=== PATIENT | female | born 1945 | race Asian ===

== ENCOUNTER 2017-03-05 23:06 | Inpatient (IN) | payer MEDICAID, MEDICARE, OTHER ==
[~2017-03-05] VITALS: Ht 160 cm; Wt 60.3 kg
[~2017-03-05 23:06] MED LIST: ALBU8.5H2 IH; ALLO100T PO; ASPI81TA2 PO; CYAN500T4 PO; FERR325T28 PO; LENA10CA PO; LEVO750T21 PO
--- NOTE | 2017-03-05 23:20 | NUR ---
TO BED 1 A 71 YO FEMALE PATIENT BIB DAUGHTER, C/O PAINFUL URINATION/ UNABLE TO URINATE 7PM. SEEN BY PCP 2:30P DX UTI, BRONCHITIS, START LEVOQUIN 500MG AT 7PM. PATIENT IS AAOX4, NAD NOTED. AFEBRILE. NONDIAPHORETIC. VSS. GOWNED. COMFORT MEASURES RENDERED. AWAITING FOR ER MD HARDEN.
[2017-03-06] VITALS (8 sets, daily range): BP systolic 95–141; BP diastolic 52–63
--- NOTE | 2017-03-06 00:10 | NUR ---
INSERTED CALHOUN CATHETER ASEPTICALLY PER DR NEWBY, DRAINED YELLOW URINE APPROXIMATELY 300CC, URINE COLLECTED AND SENT TO LAB. PER DR NEWBY, LEAVE THE CALHOUN CATHETER IN.
--- NOTE | 2017-03-06 00:20 | NUR ---
STARTED A SALINE LOCK ON THE RIGHT HAND G20, BLOOD DRAWN AND SENT TO LAB.
[2017-03-06 00:28] LABS: BASOPHILS # (AUTO) 0.1 /CMM (0.0-0.2); BASOPHILS % (AUTO) 1.2 % (0.0-2.0); EOSINOPHILS # (AUTO) 0.1 /CMM (0.0-0.7); EOSINOPHILS % (AUTO) 0.6 % (0.0-6.0); HEMATOCRIT 22 % (33-45); HEMOGLOBIN 7.2 g/dL (11.5-14.8); LYMPHOCYTES # (AUTO) 0.9 /CMM (0.8-4.8); LYMPHOCYTES % (AUTO) 9.7 % (20.0-44.0); MEAN CORPUSCULAR HEMOGLOBIN 28 PG (26.0-33.0); MEAN CORPUSCULAR HGB CONC 33 g/dl (31.0-36.0); MEAN CORPUSCULAR VOLUME 84 fL (82-100); MONOCYTES # (AUTO) 0.4 /CMM (0.1-1.30); MONOCYTES % (AUTO) 3.9 % (2.0-12.0); NEUTROPHILS % (AUTO) 84.6 % (43.0-81.0); PLATELET COUNT (AUTO) 145 /CMM (150-450); RDW COEFFICIENT OF VARIATION 19.4 (11.5-15.0); RED BLOOD CELL COUNT(AUTO) 2.58 MIL/uL (4.0-5.2); WHITE BLOOD COUNT (AUTO) 9.5 K/uL (4.3-11.0)
[2017-03-06 00:30] LABS: APPEARANCE,URINE SL CLOUDY (CLEAR); BILIRUBIN,URINE NEGATIVE (NEGATIVE); BLOOD, URINE TRACE-INTA Ery/uL (NEGATIVE); COLOR,URINE YELLOW (YELLOW); KETONES,URINE NEGATIVE (NEGATIVE); LEUKOCYTE ESTERASE ,URINE 3+ (NEGATIVE); NITRITE, URINE NEGATIVE (NEGATIVE); PROTEIN,URINE NEGATIVE (NEGATIVE); UGLUCOSE NEGATIVE (NEGATIVE); UROBILINOGEN,URINE 0.2 EU/dL (0.2)
[2017-03-06 00:36] LABS: BACTERIA,URINE Many /HPF (None Seen); SQUAMOUS EPITHELIAL CELL,UR Rare /HPF (None Seen); WBC,URINE TOO NUMEROUS TO COUN /HPF (0-3)
[2017-03-06 00:39] LABS: CALCIUM, SERUM 7.8 mg/dL (8.5-10.1); CREATININE 0.9 mg/dL (0.6-1.3); POTASSIUM 4.8 mmol/L (3.5-5.1)
[2017-03-06 00:46] LABS: BILIRUBIN,DIRECT 0.3 mg/dL (0.0-0.2); BILIRUBIN,TOTAL 1.3 mg/dL (0.2-1.0); TOTAL PROTEIN, SERUM 7.4 g/dL (6.4-8.2)
[2017-03-06] MEDS ORDERED: IV NS 0.9% 1,000 ML IV ONE (00:50)
[2017-03-06 01:00] LABS: BAND % (MANUAL) 9 % (0.0-5.0); LYMPHOCYTES % (MANUAL) 11 % (16-48); MONOCYTES % (MANUAL) 6 % (0-11.0); NEUTROPHILS % (MANUAL) 74 (42-76)
[2017-03-06] MEDS ORDERED: CEFTRIAXONE 1 G in IV D5W 50 ML IV ONE (01:00)
[2017-03-06] MEDS ORDERED: CEFTRIAXONE 1GM BAG (ER ONLY) 50 ML IV ONE (01:11)
--- NOTE | 2017-03-06 01:20 | NUR ---
REPORT GIVEN TO RN FOR MIHIR
--- NOTE | 2017-03-06 01:20 | NUR ---
MEDICTAED PT ORDERED
--- NOTE | 2017-03-06 01:22 | NUR ---
PT TRANSFERED TO TELE 320-2 PER ACLS PROTOCOL
[2017-03-06] MEDS ORDERED: ACETAMINOPHEN 325 MG TABLET PO PRN (01:30)
[2017-03-06] MEDS ORDERED: CEFTRIAXONE 1 G in IV D5W 50 ML IV SCH (01:30)
[2017-03-06] MEDS ORDERED: ONDANSETRON HCL/PF 4 MG/2 ML VIAL IVP PRN (01:30)
[2017-03-06] MEDS ORDERED: MAGNESIUM HYDROXIDE 30 ML UDC PO PRN (01:30)
[2017-03-06] MEDS ORDERED: HYDROCODONE/APAP 5/325MG 1 EACH TABLET PO PRN (01:30)
[2017-03-06] MEDS ORDERED: MAG HYDROX/AL HYDROX/SIMETH 30 ML UDC PO PRN (01:30)
[2017-03-06] MEDS ORDERED: Z GUARD REMEDY 2 OZ OINT TP PRN (01:30)
--- NOTE | 2017-03-06 02:00 | NUR ---
admitted pt from er, pt alert, oriented, restless due to discomfort from goley catheter.price draining well, cloudy yellow, vss,afebrile ,sinus rhythm on monitor, spoke with daughter regarding pt information.will continue to monitor.call light at reached.
[2017-03-06] MEDS ORDERED: HYDROCODONE/APAP 5/325MG 1 EACH TABLET ONE (03:00)
--- NOTE | 2017-03-06 07:10 | NUR ---
pt slept well after norco given price draining 1250cc overnight cloudy urine. continue with ivfluids, vss,afebrile ,sinus on monitor.
[2017-03-06 07:52] LABS: CALCIUM, SERUM 7.7 mg/dL (8.5-10.1); CREATININE 0.7 mg/dL (0.6-1.3); POTASSIUM 4.5 mmol/L (3.5-5.1)
--- NOTE | 2017-03-06 08:20 | NUR ---
ms rn received on bed, awake,alert,oriented x4,not in any form of distress, respirations even and unlabored,no sob noted, lungs are clear,abdomen soft,positive bowel sounds, denies pain at this time,price catheter to gravity, w/ yellowish urine output.will monitor patient.
[2017-03-06] MEDS ORDERED: LEVO50TA8 PO (08:36)
[2017-03-06] MEDS ORDERED: LEVO500T90 PO (08:36)
[2017-03-06] MEDS ORDERED: APIX5TAB PO (08:36)
[2017-03-06] MEDS ORDERED: FOLI1TAB16 PO (08:36)
[2017-03-06] MEDS ORDERED: POTA10TA11 PO (08:36)
[2017-03-06] MEDS ORDERED: METO50TA3 PO (08:36)
[2017-03-06] MEDS ORDERED: FURO20TA4 PO (08:36)
--- NOTE | 2017-03-06 09:20 | NUR ---
ms robbie breakfast served,waiting for dr. guo to reconcile home meds.
--- NOTE | 2017-03-06 10:25 | NUR ---
ms rn patient went down for ct abdomen.
--- NOTE | 2017-03-06 11:50 | NUR ---
ms rn was seen by dr. guo w/ alonso to be given.
[2017-03-06] MEDS: APIXABAN 5 MG TABLET PO SCH ×2 (12:56→22:56)
[2017-03-06] MEDS: FOLIC ACID 1 MG TABLET PO SCH ×2 (12:57→22:57)
[2017-03-06] MEDS: METOPROLOL TARTRATE 50 MG TABLET PO SCH ×2 (12:57→22:57)
[2017-03-06] MEDS: ALLOPURINOL 100 MG TABLET PO SCH ×2 (12:57→22:57)
[2017-03-06] MEDS: IV NS 0.9% 1,000 ML IV PRN ×2 (12:58→22:48)
[2017-03-06] MEDS ORDERED: METOPROLOL TARTRATE 50 MG TABLET PO SCH (17:00)
[2017-03-06] MEDS ORDERED: FOLIC ACID 1 MG TABLET PO SCH (17:00)
[2017-03-06] MEDS ORDERED: ALLOPURINOL 100 MG TABLET PO SCH (17:00)
[2017-03-06] MEDS ORDERED: APIXABAN 5 MG TABLET PO SCH (17:00)
--- NOTE | 2017-03-06 18:20 | NUR ---
MS RN ON BED, EATING DINNER,NO DISTRESS NOTED,WILL ENDORSE TO TAX PROCESSOR FOR CONTINUITY OF CARE.
--- NOTE | 2017-03-06 19:45 | NUR ---
RN INITIAL NOTES: RECEIVED REPORT FROM FELIPE RN, PT IN BED, AWAKE, A/O X3 ON RA RESPIRATION EVEN AND UNLABORED, PT C/O DISCOMFORT DUE TO CALHOUN CATHETER, HOWEVER PT ALSO C/O DIFFICULTY URINATING AND UNABLE TO VOID, DISCUSSED AND EXPLAINED TO THE PT THE IMPORTANCE OF VOIDING AND CALHOUN CATHETER, PT HAS IV ACCESS ON RIGHT HAND, PATENT AND FLUSHING WELL, INFUSING WITH NS AT 100ML/HR, ON SINUS RHYTHM HR 85, SAFETY PRECAUTIONS FOR FALL INITIATED CALL LIGHT IN REACH, WILL CONTINEU TO MONITOR
[2017-03-06 20:07] LABS: URINE SODIUM, RANDOM 16 mmol/l (40-220)
[2017-03-06 20:41] LABS: OSMOLALITY,SERUM 269 mOS/kg (278-305); OSMOLALITY,URINE 259 mOS/kg (340-1090)
[2017-03-06 20:52] LABS: IRON, SERUM 25 ug/dl (50-175); TOTAL IRON BINDING CAPACITY 198 ug/dl (250-450)
[2017-03-06] MEDS: CEFTRIAXONE 1 G in IV D5W 50 ML IV SCH (22:48)
--- NOTE | 2017-03-06 22:57 | NUR ---
NON ADMINISTRATION OF LOPRESSOR: LOPRESSOR 50MG TAB NOT ADMINISTERED DUE TO LOW BP, VS 95/55 HR 73 RR 18, SPO2 93%, PT RECEIVING NS AT 100ML/HR
[2017-03-07] VITALS (7 sets, daily range): BP systolic 109–115; BP diastolic 56–81
--- NOTE | 2017-03-07 05:00 | NUR ---
RN NOTES: FELT CHECKER PROVIDED BED BATH TO THE PT AT THIS TIME, ASSISTED PT TO SIT IN A CHAIR, WHILE CHANGING BED LINENS
--- NOTE | 2017-03-07 06:44 | NUR ---
RN CLOSING NOTES: PT IN BED, AWAKE, REMAINS A/O X3 ON RA RESPIRATION EVEN AND UNLABORED, PT C/O DISCOMFORT IN THE CATHETER AREA, BUT REFUSING FOR PAIN MEDICATION, RIGHT HAND IV ACCESS REMAINS PATENT AND FLUSHING WELL, INFUSING WITH NS AT 100ML/HR, REMAINS ON SINUS RHYTHM HR 75. VS REMAINS STABLE, NEEDS ATTENDED. SAFETY PRECAUTIONS FOR FALL REMAINS ENGAGED, CALL LIGHT IN REACH, WILL ENDORSE TO DAY RN FOR MIHIR.
[2017-03-07 07:10] LABS: BASOPHILS % (AUTO) 0.1 % (0.0-2.0); EOSINOPHILS % (AUTO) 0.2 % (0.0-6.0); HEMATOCRIT 22 % (33-45); HEMOGLOBIN 7.2 g/dL (11.5-14.8); LYMPHOCYTES # (AUTO) 0.8 /CMM (0.8-4.8); LYMPHOCYTES % (AUTO) 11.8 % (20.0-44.0); MEAN CORPUSCULAR HEMOGLOBIN 28 PG (26.0-33.0); MEAN CORPUSCULAR HGB CONC 33 g/dl (31.0-36.0); MEAN CORPUSCULAR VOLUME 85 fL (82-100); MONOCYTES # (AUTO) 0.4 /CMM (0.1-1.30); MONOCYTES % (AUTO) 5.3 % (2.0-12.0); NEUTROPHILS # (AUTO) 5.6 /CMM (1.8-8.9); NEUTROPHILS % (AUTO) 82.6 % (43.0-81.0); PLATELET COUNT (AUTO) 162 /CMM (150-450); RDW COEFFICIENT OF VARIATION 19.5 (11.5-15.0); RED BLOOD CELL COUNT(AUTO) 2.52 MIL/uL (4.0-5.2); WHITE BLOOD COUNT (AUTO) 6.8 K/uL (4.3-11.0)
[2017-03-07 07:19] LABS: ALBUMIN 2.5 g/dL (3.4-5.0); BILIRUBIN,TOTAL 0.5 mg/dL (0.2-1.0); CALCIUM, SERUM 8.1 mg/dL (8.5-10.1); CREATININE 0.6 mg/dL (0.6-1.3); PHOSPHORUS 3.5 mg/dL (2.5-4.9); POTASSIUM 4.2 mmol/L (3.5-5.1); TOTAL PROTEIN, SERUM 6.6 g/dL (6.4-8.2)
--- NOTE | 2017-03-07 07:20 | NUR ---
RN NOTES PT IN BED. ALERT AND ORIENTED X3. VS STABLE. RESPIRATIONS EVEN AND UNLABORED. PT C/O DISCOMFORT IN THE CATHETER AREA, BUT REFUSING FOR PAIN MEDICATION. IV ACCESS INTACT AND PATENT. INFUSING WITH NS AT 100ML/HR. BED IN LOW POSITION. SIDE RAILSX2. CALL LIGHT IN REACH. CONTINUE TO MONITOR.
[2017-03-07] MEDS ORDERED: LEVOTHYROXINE SODIUM 50 MCG TABLET PO SCH (07:30)
[2017-03-07 07:33] LABS: THYROID STIMULATING HORMONE 1.424 uIU/mL (0.358-3.74)
[2017-03-07] MEDS: FOLIC ACID 1 MG TABLET PO SCH ×2 (09:14→17:21)
[2017-03-07] MEDS: ALLOPURINOL 100 MG TABLET PO SCH ×2 (09:14→17:21)
[2017-03-07] MEDS: METOPROLOL TARTRATE 50 MG TABLET PO SCH ×2 (09:15→17:22)
[2017-03-07] MEDS: APIXABAN 5 MG TABLET PO SCH ×2 (09:18→17:21)
[2017-03-07] MEDS: IV NS 0.9% 1,000 ML IV PRN ×2 (11:09→22:46)
[2017-03-07] MEDS: SOD FERRIC GLUC 125 MG in IV NS 0.9% 100 ML IV SCH (15:33)
--- NOTE | 2017-03-07 16:30 | NUR ---
RN NOTES CALHOUN CATHETER REMOVED ORDERED TOLERATED WELL ORDERED, TO BE MONITORED FOR URINARY RETENTION AT THIS TIME, WILL CONTINUE TO MONITOR
--- NOTE | 2017-03-07 19:20 | NUR ---
RN CLOSING NOTES PATIENT IN BED. ALERT AND ORIENTED X3. NO C/O PAIN AT THIS TIME. NO RESPIRATORY DISTRESS NOTED. VS STABLE. NO SOB. IV ACCESS PATENT AND INTACT. CONTINUED TO MONITOR FOR URINARY RETENTION. ALL MEDICATIONS GIVEN PER MD ORDER. BED IN LOW POSITION. SIDE RAILS X2. CALL LIGHT WITHIN EASY REACH. WILL ENDORSE TO REGULATORY AFFAIRS SPECAERIAL HURRICANE HUNTER FOR CONTINUITY OF CARE.
--- NOTE | 2017-03-07 19:30 | NUR ---
TIRE RECAPPING MACHINE OPERATOR OPENING NOTES: PT IN BED, AOX3, ON ROOM AIR, BREATHING EVEN AND UNLABORED. APPEARS CALM AND IN NO DISTRESS. BREATH SOUNDS CLEAR TO AUSCULTATION. ON TELE MONITORING, SR AT RATE OF 72. PIV OVER R HAND G 20 INTACT AND INFUSING WELL WITH NS RUNNING AT 100 ML/HR. PROVIDED FOR COMFORT AND SAFETY. BED IN LOWEST AND LOCKED POSITION, SIDERAILS UPX23. WILL CONT TO MONITOR.
--- NOTE | 2017-03-07 21:40 | NUR ---
RN NOTES: PT SIGNED CONSENT FOR CT UROGRAM TOMORROW.
--- NOTE | 2017-03-07 22:00 | NUR ---
RN NOTES: S/B DR PRINCE. TELE D'DOMINIC.
[2017-03-07] MEDS: CEFTRIAXONE 1 G in IV D5W 50 ML IV SCH (22:46)
[2017-03-08] VITALS (10 sets, daily range): BP systolic 95–134; BP diastolic 60–80
--- NOTE | 2017-03-08 06:30 | NUR ---
MS RN CLOSING NOTES: PATIENT IN BED, AOX3, ON ROOM AIR, BREATHING EVEN AND UNLABORED. APPEARS CALM AND IN NO DISTRESS. DENIES PAIN. WAS ABLE TO VOID WELL THROUGH THE NIGHT, DENIES ANY DYSURIA. MAINTAINED ON NPO POST MN FOR CT UROGRAM FOR THIS AM. PIV OVER R HAND G20 INTACT AND INFUSING WELL WITH NS RUNNING AT 100 ML/HR. PROVIDED FOR COMFORT AND SAFETY. BED IN LOWEST AND LOCKED POSITION. SIDERAILS UPX2. WILL ENDORSE TO AM RN FOR MIHIR.
--- NOTE | 2017-03-08 07:30 | NUR ---
RN OPENING NOTES RECEIVED PT. IN BED A&OX3. BREATHING UNLABORED AND EVENLY ON ROOM AIR. NO S/S OF ACUTE DISTRESS. IV FLUIDS RUNNING AT 100 ML/HR. BED IS IN LOWEST LOCKED POSITION, 2 SIDE RAILS UP, AND INSTRUCTED PT. TO USE CALL LIGHT WITHIN REACH FOR ASSISTANCE. WILL CONTINUE TO ASSESS AND MONITOR.
[2017-03-08 07:51] LABS: EOSINOPHILS % (AUTO) 0.2 % (0.0-6.0); LYMPHOCYTES # (AUTO) 0.7 /CMM (0.8-4.8); LYMPHOCYTES % (AUTO) 10.3 % (20.0-44.0); MEAN CORPUSCULAR HEMOGLOBIN 28 PG (26.0-33.0); MEAN CORPUSCULAR HGB CONC 33 g/dl (31.0-36.0); MEAN CORPUSCULAR VOLUME 85 fL (82-100); MONOCYTES # (AUTO) 0.2 /CMM (0.1-1.30); MONOCYTES % (AUTO) 2.5 % (2.0-12.0); NEUTROPHILS # (AUTO) 5.5 /CMM (1.8-8.9); PLATELET COUNT (AUTO) 182 /CMM (150-450); RDW COEFFICIENT OF VARIATION 19.3 (11.5-15.0); RED BLOOD CELL COUNT(AUTO) 2.41 MIL/uL (4.0-5.2); WHITE BLOOD COUNT (AUTO) 6.4 K/uL (4.3-11.0)
[2017-03-08 07:57] LABS: HEMOGLOBIN 6.8 g/dL (11.5-14.8)
[2017-03-08 07:58] LABS: HEMATOCRIT 20 % (33-45)
[2017-03-08 08:01] LABS: RETICULOCYTE COUNT 3.4 % (0.6-2.5)
[2017-03-08 08:02] LABS: CREATININE 0.6 mg/dL (0.6-1.3); MAGNESIUM 1.6 mg/dL (1.8-2.4); PHOSPHORUS 3.6 mg/dL (2.5-4.9); POTASSIUM 4.1 mmol/L (3.5-5.1)
--- NOTE | 2017-03-08 08:30 | NUR ---
RN NOTES LAB CALLED WITH CRITICAL LAB RESULTS, PT. HGB 6.8 AND HCT 20. MD IS AWARE, AND BLOOD TRANSFUSION CONSENT SIGNED AND 1 UNIT OF PRBC'S WAS ORDERED.
--- NOTE | 2017-03-08 08:47 | NUR ---
RN NOTES PT. LEFT ROOM FOR CT UROGRAM.
[2017-03-08] MEDS ORDERED: IOHEXOL-300 100 ML VIAL IV ONE (08:54)
[2017-03-08] MEDS ORDERED: CT SWABBABLE VALVE TRANS SET 1 EA INFUS.SET MC ONE (08:54)
[2017-03-08] MEDS ORDERED: IV NS 0.9% 250 ML IV ONE (08:56)
[2017-03-08] MEDS: METOPROLOL TARTRATE 50 MG TABLET PO SCH ×2 (09:51→17:45)
[2017-03-08] MEDS: ALLOPURINOL 100 MG TABLET PO SCH ×2 (09:51→17:45)
[2017-03-08] MEDS: FOLIC ACID 1 MG TABLET PO SCH ×2 (09:52→17:45)
[2017-03-08] MEDS: LEVOTHYROXINE SODIUM 25 MCG TABLET PO SCH (09:52)
[2017-03-08 11:18] LABS: BAND % (MANUAL) 7 % (0.0-5.0); EOSINOPHILS % (MANUAL) 1 % (0-4); LYMPHOCYTES % (MANUAL) 7 % (16-48); MONOCYTES % (MANUAL) 5 % (0-11.0); NEUTROPHILS % (MANUAL) 80 (42-76)
[2017-03-08] MEDS ORDERED: Magnesium 1GM/D5W 100ML PREMIX 100 ML IV SCH (11:30)
[2017-03-08] MEDS: IV NS 0.9% 1,000 ML IV PRN (14:51)
[2017-03-08] MEDS: SOD FERRIC GLUC 125 MG in IV NS 0.9% 100 ML IV SCH (14:51)
[2017-03-08] MEDS: Magnesium 1GM/D5W 100ML PREMIX 100 ML IV SCH ×2 (16:26→17:40)
[2017-03-08 19:06] LABS: BASOPHILS # (AUTO) 0.1 /CMM (0.0-0.2); BASOPHILS % (AUTO) 0.9 % (0.0-2.0); EOSINOPHILS # (AUTO) 0.1 /CMM (0.0-0.7); EOSINOPHILS % (AUTO) 0.6 % (0.0-6.0); HEMATOCRIT 29 % (33-45); HEMOGLOBIN 9.6 g/dL (11.5-14.8); LYMPHOCYTES # (AUTO) 1.4 /CMM (0.8-4.8); LYMPHOCYTES % (AUTO) 11.6 % (20.0-44.0); MEAN CORPUSCULAR HEMOGLOBIN 28 PG (26.0-33.0); MEAN CORPUSCULAR HGB CONC 33 g/dl (31.0-36.0); MEAN CORPUSCULAR VOLUME 85 fL (82-100); MONOCYTES # (AUTO) 0.2 /CMM (0.1-1.30); MONOCYTES % (AUTO) 1.9 % (2.0-12.0); NEUTROPHILS # (AUTO) 10.3 /CMM (1.8-8.9); PLATELET COUNT (AUTO) 261 /CMM (150-450); RDW COEFFICIENT OF VARIATION 18.1 (11.5-15.0); RED BLOOD CELL COUNT(AUTO) 3.47 MIL/uL (4.0-5.2); WHITE BLOOD COUNT (AUTO) 12.1 K/uL (4.3-11.0)
--- NOTE | 2017-03-08 19:30 | NUR ---
MS RN OPENING NOTES: PATIENT IN BED, AOX4 ON ROOM AIR BREATHING EVEN AND UNLABORED. APPEARS CAM ADN IN NO DISTRESS DENIES PAIN. PIV OVER L WRIST G22 INTACT AND PATENT INFUSING WELL WITH NS RUNNING AT 100 ML/HR. PROVIDED FOR COMFORT AND SAFETY. BED IN LOWEST AND LOCKED POSITION, SIDERAILS UPX3. WILL CONT TO MONITOR.
--- NOTE | 2017-03-08 19:30 | NUR ---
RN CLOSING NOTES PT. IN BED A&OX3. BREATHING UNLABORED AND EVENLY ON ROOM AIR. NO S/S OF ACUTE DISTRESS. IV FLUIDS RUNNING AT 100 ML/HR. BED IS IN LOWEST LOCKED POSITION, 2 SIDE RAILS UP, AND INSTRUCTED PT. TO USE CALL LIGHT WITHIN REACH FOR ASSISTANCE. WILL ENDORSE REPORT TO NURSE.
--- NOTE | 2017-03-08 20:53 | NUR ---
RN NOTES: BEDSIDE US BEING DONE NOW.
[2017-03-08] MEDS: CEFTRIAXONE 1 G in IV D5W 50 ML IV SCH (22:12)
[2017-03-09 04:00] VITALS: BP 107/63
--- NOTE | 2017-03-09 06:48 | NUR ---
MS RN CLOSING NOTES: PATIENT IN BED, AOX3 ON ROOM AIR BREATHING EVEN AND UNLABORED. APPEARS CALM AND IN NO DISTRESS. PIV OVER LEFT WRIST G22 INTACT AND INFUSING WELL WITH NS RUNNING AT 100 ML/HR. DUE MEDS GIVEN. PROVIDED FOR COMFORT AND SAFETY. BED IN LOWEST AND LOCKED POSITION SIDERAILS UPX3. WILL ENDORSE TO AM RN FOR MIHIR.
--- NOTE | 2017-03-09 07:43 | NUR ---
MS/RN OPENING NOTE PATIENT RECEIVED IN BED IN STABLE CONDITION. A/O X 3. NO SIGNS OF ACUTE DISTRESS. NO COMPLAIN OF PAIN OR DISCOMFORT. ALL NEEDS ATTENDED TO. CALL LIGHT WITHIN REACH. WILL CONTINUE TO MONITOR TO ENSURE SAFETY.
[2017-03-09 08:00] VITALS: BP 118/67
[2017-03-09 08:13] LABS: CALCIUM, SERUM 8.1 mg/dL (8.5-10.1); CREATININE 0.7 mg/dL (0.6-1.3); POTASSIUM 4.1 mmol/L (3.5-5.1)
[2017-03-09] MEDS: FOLIC ACID 1 MG TABLET PO SCH ×2 (08:32→17:26)
[2017-03-09] MEDS: METOPROLOL TARTRATE 50 MG TABLET PO SCH ×2 (08:32→17:26)
[2017-03-09] MEDS: ALLOPURINOL 100 MG TABLET PO SCH ×2 (08:32→17:26)
[2017-03-09] MEDS: IV NS 0.9% 1,000 ML IV PRN (09:28)
[2017-03-09] MEDS: ALBUTEROL FS 2.5 MG/3 ML VIAL.NEB NEB PRN (10:13)
[2017-03-09 10:23] LABS: IMMUNOGLOBULIN A, SERUM 222 mg/dL (87-352); IMMUNOGLOBULIN G, SERUM 847 mg/dL (700-1600); IMMUNOGLOBULIN M, SERUM 144 mg/dL (26-217)
[2017-03-09] MEDS: SOD FERRIC GLUC 125 MG in IV NS 0.9% 100 ML IV SCH (15:29)
[2017-03-09 16:00] VITALS: BP 122/69
--- NOTE | 2017-03-09 16:37 | NUR ---
MS/RN CALHOUN CATHETER INSERTION SPOKE WITH DR MARTINEZ AND MADE AWARE PATIENT NOTED WITH DIFFICULTY VOIDING AND PER PATIENT, SHE HAS A URGE TO VOID BUT NOTHING COMES OUT. DR MARTINEZ ORDERED TO INSERT CALHOUN CATHETER.
[2017-03-09 17:51] LABS: BASOPHILS % (AUTO) 0.3 % (0.0-2.0); EOSINOPHILS # (AUTO) 0.1 /CMM (0.0-0.7); EOSINOPHILS % (AUTO) 1.1 % (0.0-6.0); HEMATOCRIT 24 % (33-45); HEMOGLOBIN 7.8 g/dL (11.5-14.8); LYMPHOCYTES # (AUTO) 1.1 /CMM (0.8-4.8); LYMPHOCYTES % (AUTO) 12.8 % (20.0-44.0); MEAN CORPUSCULAR HEMOGLOBIN 27 PG (26.0-33.0); MEAN CORPUSCULAR HGB CONC 32 g/dl (31.0-36.0); MEAN CORPUSCULAR VOLUME 85 fL (82-100); MONOCYTES # (AUTO) 0.4 /CMM (0.1-1.30); MONOCYTES % (AUTO) 4.4 % (2.0-12.0); NEUTROPHILS # (AUTO) 6.8 /CMM (1.8-8.9); NEUTROPHILS % (AUTO) 81.4 % (43.0-81.0); PLATELET COUNT (AUTO) 193 /CMM (150-450); RDW COEFFICIENT OF VARIATION 18.7 (11.5-15.0); RED BLOOD CELL COUNT(AUTO) 2.85 MIL/uL (4.0-5.2); WHITE BLOOD COUNT (AUTO) 8.4 K/uL (4.3-11.0)
[2017-03-09 18:12] LABS: CALCIUM, SERUM 8.1 mg/dL (8.5-10.1); CREATININE 0.7 mg/dL (0.6-1.3); POTASSIUM 4.9 mmol/L (3.5-5.1)
--- NOTE | 2017-03-09 18:16 | NUR ---
MS/RN CLOSING NOTE PATIENT IN BED IN STABLE CONDITION. A/O X 3. NO SIGNS OF ACUTE DISTRESS. NO COMPLAIN OF PAIN OF DISCOMFORT. ALL NEEDS ATTENDED TO. CALL LIGHT WITHIN REACH. WILL ENDORSE TO NEXT SHIFT FOR CONTINUITY OF CARE.
--- NOTE | 2017-03-09 18:34 | NUR ---
MS/RN PAGED DR MARTINEZ PATIENT NOTED WITH HGB OF 7.8L. PAGED DR MARTINEZ AWAITING FOR CALL BACK.
--- NOTE | 2017-03-09 18:57 | NUR ---
MS/RN ORDERS FROM DR MARTINEZ SPOKE WITH DR MARTINEZ MADE AWARE REGARDING PATIENTS HGB OF 7.8L WITH ORDERS TO TRANSFUSE 1 UNIT PRBC. CONSENT FOR BLOOD TRANSFUSION OBTAINED FROM PATIENT.
[2017-03-09 20:00] VITALS: BP 126/77
--- NOTE | 2017-03-09 20:00 | NUR ---
ms/rn opening notes PATIENT IN BED, AWAKE, ALERT X3. ABLE TO VERBALIZE NEEDS. PROVIDED INFO REGARDING MD ORDER FOR I PACK RBC TO TRANSFUSE DUE TO LOW HGB LEVEL OG LESS THAN 8 AND PATIENT PROVIDED INFO, INFECTION CONTROL MEASURES AND KEEP VITAL SIGNS MONITORING FOR ANY CHANGES, SKIN WARM TO TOUCH. RESPIRATION EVEN AND UN LABORED. CALL LIGHTS WITHIN REACH.
[2017-03-09 21:47] LABS: BAND % (MANUAL) 2 % (0.0-5.0); LYMPHOCYTES % (MANUAL) 14 % (16-48); MONOCYTES % (MANUAL) 9 % (0-11.0); MYELOCYTES % 2 % (0-0); NEUTROPHILS % (MANUAL) 69 (42-76); REACTIVE LYMPHOCYTES 4 % (0-0)
[2017-03-09] MEDS: CEFTRIAXONE 1 G in IV D5W 50 ML IV SCH (22:15)
--- NOTE | 2017-03-09 22:36 | NUR ---
MS/RN NOTES LAB WAS CALLED FOR 1 PACK RBC AND NOT YET READY WILL CALL AGAIN.
--- NOTE | 2017-03-09 22:37 | NUR ---
MS/RN NOTES CALLED LAB AND SPOKE TP MAY REGARDING 1 INIT PACK RBC AVAILABLE FOR RECRUIT INSTRUCTOR WILL COLLECT BLOOD AFTER ANTIBIOTIC IV HAS BEEN INFUSED.
--- NOTE | 2017-03-09 22:48 | NUR ---
MS/RN NOTES PATIENT CHECKED VITAL SIGNS BEFORE BLOOD TRANSFUSION. WITH TEMPERATURE OF 99.2 DEG F, PULSE 74, RESPIRATION OF 22, B/P 96/68, O2 SAT IN ROOM AIR AT 97% NO PAIN REPORTED OR OBSERVED. WILL GIVE NEEDED TYLENOL 650MG PO BEFORE TRANSFUSION. IV ATB BEING INFUSED AT THIS TIME.
[2017-03-09 23:42] VITALS: BP 127/68
--- NOTE | 2017-03-09 23:45 | NUR ---
MS/RN NOTES I PACK RBC TO BE ADMINISTERED W/ VERIFICATION BY LAB AND ANOTHER RN ELENOR FOR PROTOCOL. PATIENT ALERT X3 NO S/S OF DISCOMFORT.
[2017-03-10] VITALS (9 sets, daily range): BP systolic 104–133; BP diastolic 58–73
--- NOTE | 2017-03-10 02:53 | NUR ---
ms/rn notes 1 unit pack rbc transfused w/ no s/s of adverse reaction. Patient alert, oriented x3. Resting comfortably , respirations even and unlabored. Skin warm to touch. Will continue to monitor.
--- NOTE | 2017-03-10 06:51 | NUR ---
327-1 MS/RN CLOSING NOTES PATIENT ALERT, ORIENTED X3, ABLE TO COOPERATE AND VERBALIZE NEEDS AT ALL TIMES. INFORMED REGARDING LOW HEMOGLOBIN LEVEL W/MD ORDER TO GIVE I UNIT OF PACKED RBC, PATIENT CONSENT FORM SIGNED AND TRANSFUSED BLOOD W/ NO S/S OF ADVERSE REACTION. WILL ENDORSE TO AM RN FOR MIHIR.
--- NOTE | 2017-03-10 08:00 | NUR ---
RN NOTES RECEIVED PT. PT IS STABLE AND SLEEPING IN BED. NO S/S OF DISTRESS OR SOB. PT HAS NO C/O PAIN, HOWEVER C/O MILD ITCHING IN UE. WILL F/U WITH MD. PT IS ON RA, O2 SAT ABOVE 95%. FC INTACT. IV ACCESS LOCATED ON RIGHT FA, 22G RUNNING NS AT 100ML/HR. SAFETY MEASURES IN PLACE, CALL LIGHT WITHIN REACH. WILL CONTINUE TO MONITOR.
[2017-03-10 08:11] LABS: BASOPHILS % (AUTO) 0.6 % (0.0-2.0); EOSINOPHILS # (AUTO) 0.1 /CMM (0.0-0.7); HEMATOCRIT 28 % (33-45); HEMOGLOBIN 9.1 g/dL (11.5-14.8); LYMPHOCYTES # (AUTO) 0.8 /CMM (0.8-4.8); LYMPHOCYTES % (AUTO) 11.1 % (20.0-44.0); MEAN CORPUSCULAR HEMOGLOBIN 28 PG (26.0-33.0); MEAN CORPUSCULAR HGB CONC 33 g/dl (31.0-36.0); MEAN CORPUSCULAR VOLUME 85 fL (82-100); MONOCYTES # (AUTO) 0.3 /CMM (0.1-1.30); MONOCYTES % (AUTO) 4.1 % (2.0-12.0); NEUTROPHILS # (AUTO) 6.1 /CMM (1.8-8.9); NEUTROPHILS % (AUTO) 83.2 % (43.0-81.0); PLATELET COUNT (AUTO) 177 /CMM (150-450); RDW COEFFICIENT OF VARIATION 17.5 (11.5-15.0); RED BLOOD CELL COUNT(AUTO) 3.26 MIL/uL (4.0-5.2); WHITE BLOOD COUNT (AUTO) 7.3 K/uL (4.3-11.0)
[2017-03-10] MEDS: FOLIC ACID 1 MG TABLET PO SCH ×2 (08:14→17:26)
[2017-03-10] MEDS: LEVOTHYROXINE SODIUM 25 MCG TABLET PO SCH (08:14)
[2017-03-10] MEDS: ALLOPURINOL 100 MG TABLET PO SCH ×2 (08:14→17:26)
[2017-03-10] MEDS: IV NS 0.9% 1,000 ML IV PRN (08:20)
[2017-03-10] MEDS: METOPROLOL TARTRATE 50 MG TABLET PO SCH ×2 (08:24→17:26)
[2017-03-10 08:31] LABS: CALCIUM, SERUM 7.9 mg/dL (8.5-10.1); CREATININE 0.7 mg/dL (0.6-1.3); MAGNESIUM 1.9 mg/dL (1.8-2.4); PHOSPHORUS 4.6 mg/dL (2.5-4.9); POTASSIUM 4.5 mmol/L (3.5-5.1)
[2017-03-10 08:33] LABS: INR 0.98 (0.87-1.13); PROTHROMBIN TIME 10.2 SECS (9.5-12.7)
--- NOTE | 2017-03-10 10:53 | NUR ---
RN NOTES MORNING LOPRESSOR HELD DUE TO LOW BP OF 106/58.
[2017-03-10] MEDS: diphenhydrAMINE HCL 25 MG CAPSULE PO PRN ×2 (12:04→22:36)
[2017-03-10] MEDS: SOD FERRIC GLUC 125 MG in IV NS 0.9% 100 ML IV SCH (15:17)
--- NOTE | 2017-03-10 18:05 | NUR ---
RN NOTES CALHOUN CATH D/C PER DR. MARTINEZ ORDER.
--- NOTE | 2017-03-10 18:47 | NUR ---
RN CLOSING NOTES PT IS IN BED RESTING. A/OX3. NO S/S OF DISTRESS OR SOB. NO C/O PAIN AT THIS TIME. FC D/C PER DR. MARTINEZ ORDER. ALL PT NEEDS ANTICIPATED AND MET. SAFETY MEASURES IN PLACE, CALL LIGHT WITHIN REACH. WILL ENDORSE TO GRAB HOOKER FOR MIHIR.
--- NOTE | 2017-03-10 20:00 | NUR ---
MS/RN OPENING NOTES PATIENT AWAKE, ALERT X3, ABLE TO VERBALIZE NEEDS, CALM AND COOPERATIVE TO CARE. NO PAIN VERBALIZED AND OBSERVED. USES BEDSIDE COMMODE WITH SUPERVISION. IV FLUIDS RUNNING AT 100 CC/HR. CALL LIGHTS WITHIN REACH WILL CONTINUE TO MONITOR AND ATTEND TO NEEDS.
[2017-03-10] MEDS: ALBUTEROL FS 2.5 MG/3 ML VIAL.NEB NEB PRN (21:14)
[2017-03-10] MEDS: CEFTRIAXONE 1 G in IV D5W 50 ML IV SCH (22:28)
[2017-03-11] MEDS: IV NS 0.9% 1,000 ML IV PRN (00:01)
--- NOTE | 2017-03-11 06:33 | NUR ---
HORTENCIA NOTES, PATIENT REQUIRING ADL EXTENSICE ASSISTANCE. SKIN WARM TO TOUCH, ABLE TO PROVIDE CARE/ WILL CONTINUE TO PROVIDE CARE AND ENDORSE TO AM HORTENCIA. Addendum: 03/11/17 at 0635 by BALJIT VALDEZ RN PATIENT REQUIRING ASSISTANCE BUT CAN SAFELY DO ADL INDEPENDENTLY W/ ASSISTANCE ONLY
[2017-03-11 07:07] LABS: *SPE ALBUMIN 2.9 g/dL (2.9-4.4); *SPE ALPHA-1-GLOBULIN 0.4 g/dL (0.0-0.4); *SPE ALPHA-2-GLOBULIN 0.7 g/dL (0.4-1.0); *SPE BETA GLOBULIN 0.7 g/dL (0.7-1.3); *SPE GLOBULIN, TOTAL 2.9 g/dL (2.2-3.9); *SPE M-SPIKE Not Observed g/dL (Not Observed); *SPE PROTEIN TOTAL 5.8 g/dL (6.0-8.5); *SPEGAMMA GLOBULIN 1.1 g/dL (0.4-1.8)
--- NOTE | 2017-03-11 07:30 | NUR ---
RN MS NOTES PT IN BED, ASLEEP, EASILY AROUSABLE, ALERT AND ORIENTED, NO COMPLAINT OF PAIN, BREATHING PATTERN NORMAL AND NOT LABORED, CALL LIGHT WITHIN REACH, KEPT WARM AND COMFORTABLE IN BED.
[2017-03-11 07:49] LABS: BASOPHILS # (AUTO) 0.1 /CMM (0.0-0.2); BASOPHILS % (AUTO) 0.8 % (0.0-2.0); EOSINOPHILS # (AUTO) 0.1 /CMM (0.0-0.7); EOSINOPHILS % (AUTO) 1.2 % (0.0-6.0); HEMATOCRIT 28 % (33-45); HEMOGLOBIN 9.1 g/dL (11.5-14.8); LYMPHOCYTES # (AUTO) 1.1 /CMM (0.8-4.8); LYMPHOCYTES % (AUTO) 13.1 % (20.0-44.0); MEAN CORPUSCULAR HEMOGLOBIN 28 PG (26.0-33.0); MEAN CORPUSCULAR HGB CONC 33 g/dl (31.0-36.0); MEAN CORPUSCULAR VOLUME 85 fL (82-100); MONOCYTES % (AUTO) 0.4 % (2.0-12.0); NEUTROPHILS % (AUTO) 84.5 % (43.0-81.0); PLATELET COUNT (AUTO) 206 /CMM (150-450); RDW COEFFICIENT OF VARIATION 18.3 (11.5-15.0); RED BLOOD CELL COUNT(AUTO) 3.26 MIL/uL (4.0-5.2); WHITE BLOOD COUNT (AUTO) 8.3 K/uL (4.3-11.0)
[2017-03-11 08:00] VITALS: BP 114/69
[2017-03-11 08:00] LABS: CALCIUM, SERUM 8.1 mg/dL (8.5-10.1); CREATININE 0.7 mg/dL (0.6-1.3); MAGNESIUM 1.8 mg/dL (1.8-2.4); PHOSPHORUS 4.3 mg/dL (2.5-4.9); POTASSIUM 4.3 mmol/L (3.5-5.1)
[2017-03-11 09:00] VITALS: BP 114/69
[2017-03-11] MEDS: METOPROLOL TARTRATE 50 MG TABLET PO SCH (09:00)
[2017-03-11] MEDS: ALLOPURINOL 100 MG TABLET PO SCH (09:06)
[2017-03-11] MEDS: FOLIC ACID 1 MG TABLET PO SCH (09:06)
[2017-03-11] MEDS: LEVOTHYROXINE SODIUM 25 MCG TABLET PO SCH (09:06)
[2017-03-11 11:20] LABS: BAND % (MANUAL) 3 % (0.0-5.0); LYMPHOCYTES % (MANUAL) 5 % (16-48); MONOCYTES % (MANUAL) 13 % (0-11.0); NEUTROPHILS % (MANUAL) 79 (42-76)
--- NOTE | 2017-03-11 12:30 | NUR ---
RN MS NOTES PT AWAKE, SITTING IN BED, EATING LUNCH, TOLERATING CURRENT DIET WELL, ASSISTED WITH ADL'S, CALL LIGHT WITHIN REACH.
[2017-03-11] MEDS: diphenhydrAMINE HCL 25 MG CAPSULE PO PRN (12:44)
[2017-03-11] MEDS: SOD FERRIC GLUC 125 MG in IV NS 0.9% 100 ML IV SCH (14:00)
--- NOTE | 2017-03-11 14:00 | NUR ---
RN MS NOTES NOTED PT'S IV SITE AT RIGHT FOREARM INFILTRATED, PT WITH SCHEDULED IRON IV, PT REFUSED IV TO BE REINSERTED, REFUSED IV IRON, AWARE.
[2017-03-11] MEDS ORDERED: FLU VACC QS 2017-18(36MOS+)/PF 0.5 ML DISP.SYRIN IM ONE (16:00)
--- NOTE | 2017-03-11 16:20 | NUR ---
RN MS NOTES PT IN BED, RESTING, NO COMPLAINT OF PAIN, NOT IN DISTRESS, SEEN BY DR. MARTINEZ, DISCHARGE ORDER GIVEN, DISCHARGE AND MEDICATION INSTRUCTIONS PROVIDED TO PT AND DAUGHTER SHANNON, VERBALIZED UNDERSTANDING, FLU VACCINE GIVEN PER PROTOCOL, PER DAUGHTER, SHE WILL OBTAIN HER PNEUMONIA VACCINE AT HER PCP'S OFFICE, BELONGINGS ACCOUNTED FOR, ASSISTED PT TO WHEELCHAIR, ASSISTED BY [employer] T[employer]AS[employer] CONSULTANT TO HOSPITAL LOBBY, LEFT IN STABLE CONDITION WITH FAMILY.
== END 2017-03-11 16:15 | disposition home or self-care (01) | DRG 644 ==
LOC: ER 23:13 → TELE 03-06 01:27 → MED 03-08 00:03
PROVIDERS: ADMIT Nurse Practitioner Acute Care; ATTEND Nurse Practitioner Acute Care
PROC: 30233N1 Transfusion of Nonautologous Red Blood Cells into Peripheral Vein, Percutaneous Approach (ICD-10-PCS; principal; 2017-03-08)
DX: E22.2 Syndrome of inappropriate secretion of antidiuretic hormone (principal); N12 Tubulo-interstitial nephritis, not specified as acute or chronic; D75.81 Myelofibrosis; D69.59 Other secondary thrombocytopenia; K92.2 Gastrointestinal hemorrhage, unspecified; N13.6 Pyonephrosis; E86.0 Dehydration; D63.8 Anemia in other chronic diseases classified elsewhere; E03.9 Hypothyroidism, unspecified; E88.09 Other disorders of plasma-protein metabolism, not elsewhere classified; K21.9 Gastro-esophageal reflux disease without esophagitis; D63.0 Anemia in neoplastic disease; K59.09 Other constipation; R16.2 Hepatomegaly with splenomegaly, not elsewhere classified; D50.9 Iron deficiency anemia, unspecified; N28.1 Cyst of kidney, acquired; Z83.3 Family history of diabetes mellitus; R19.5 Other fecal abnormalities; N30.90 Cystitis, unspecified without hematuria
CPT/HCPCS: 36415; 71010-TC; 74022-TC; 74178; 76770-TC; 80048-TC; 80053-TC; 80061-TC; 80076-TC; 81000-TC; 82272-TC; 82728-TC; 82746; 82784; 83540-TC; 83605-TC; 83615-TC; 83690-TC; 83735-TC; 83935-TC; 84100-TC; 84155; 84165; 84300-TC; 84443-TC; 85025-TC; 85045-TC; 85610-TC; 86334; 86706; 86803; 86850-TC; 86921-TC; 87040-TC; 87081-TC; 87086-TC; 87340; A4606; J0696; J2916; J3475; J7030; J7050; J7060; P9016-BL; Q0163; Q2036; Q9967; Z7610